=== PATIENT | male | born 1990 | race Caucasian/White ===

== ENCOUNTER 2021-01-30 22:51 | Emergency (ER) | payer BC ==
[~2021-01-30] VITALS: Ht 180.3 cm; Wt 88.5 kg
[2021-01-30 23:35] LABS: ABSOLUTE NEUTROPHILS 8.2 thou/uL (1.4-8.2); BASOPHILS 0.3 % (0.0-2.0); EOSINOPHILS 0.3 % (0.0-3.0); HEMOGLOBIN 13.7 gm/dL (14.0-18.0); LYMPHOCYTES 21.8 % (24.0-44.0); MCH 29.2 pg (26.0-34.0); MCHC 34.4 g/dL (28.0-37.0); MCV 85.1 fL (80.0-100.0); MONOCYTES 8.4 % (1.0-8.0); PLATELET COUNT 291 thou/uL (150-400); POLYS 69.2 % (36.0-66.0); RDW 12.8 % (10.5-14.5); WBC 11.9 thou/uL (4.0-11.0)
[2021-01-30 23:39] LABS: CALCIUM 8.8 mg/dL (8.5-10.1); CREATININE 1.4 mg/dL (0.7-1.3); POTASSIUM 3.6 mmol/L (3.5-5.1)
[2021-01-30 23:49] LABS: ALBUMIN 4.1 g/dL (3.4-5.0); TOTAL BILIRUBIN 0.8 mg/dL (0.2-1.0)
[2021-01-31 00:57] VITALS: BP 116/53
--- NOTE | 2021-02-02 07:26 | EKG ---
[place] [address] [address] [facility] [place] [address] ELECTROCARDIOGRAM REPORT Name: YAMILKASOLA E Room #: DEP [facility]#: [id number] Admission: 01/30/21 Attend Phys: Discharge: 01/31/21 Date of : 86 Report #: [id number] [facility] ED Test Date: 2021-01-30 Test Time: 22:58:55 Pat Name: SOLA PRATHER Department: Room: Gender: Manager Health: : 1990 Requested By: Christian Shrestha Order Number: [id number] MD: Giovany Barrios Measurements Intervals [place] Rate: 78 P: 40 UT: 148 QRS: 65 QRSD: 91 T: 34 QT: 353 QTc: 403 Interpretive Statements Sinus rhythm ST elev, probable normal early repol pattern No previous ECG available for comparison Electronically Signed On 02-02-2021 7:25:54 CDT by Giovany Barrios [email or web address] <ELECTRONICALLY SIGNED> By: Giovany Barrios MD, [facility] 02/02/21 0725 [id number] [id number] Giovany Barrios MD, FAC /EPI
== END 2021-01-31 01:00 | disposition home or self-care (01) ==
LOC: ER 22:51
PROVIDERS: Emergency Medicine
DX: F41.9 Anxiety disorder, unspecified (principal); R42 Dizziness and giddiness; R07.89 Other chest pain